=== PATIENT | male | born 2000 | race Caucasian/White ===

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

== ENCOUNTER 2019-12-10 14:17 | Emergency (ER) | payer OTHER, SELFPAY ==
[2019-12-10 14:52] LABS: Bilirubin Negative (Negative); Blood, Urine Negative (Negative); Clarity Clear (Clear); Glucose, Urine (Dipstick) Negative (Negative); Ketone, Urine Negative (Negative); Leukocyte Negative (Negative); Nitrite Negative (Negative); Protein, Urine (Dipstick) Negative (Neg-Trace); Specific Gravity, Urine 1.015 (1.005-1.030); Urobilinogen 0.2 mg/dL (Less than 2); pH, Urine 6.5 (5.0-9.0)
[2019-12-13 21:38] LABS: Chlam.trachomatis by PCR,Urine Not Detected (NotDetected)
== END 2019-12-10 15:34 | disposition short-term general hospital (02) ==
LOC: MADERS 14:17
DX: N50.812 Left testicular pain (principal)
CPT/HCPCS: 81003; 87491; 87591; 99284

== ENCOUNTER 2021-07-02 12:12 | Emergency (ER) | payer SELFPAY | END 2021-07-02 13:16 | disposition home or self-care (01) | LOC: MADERS 12:12 | DX: J06.9 Acute upper respiratory infection, unspecified (principal) | CPT/HCPCS: 99283 ==